=== PATIENT | male | born 1985 | race Caucasian/White ===

== ENCOUNTER → 2023-10-29 06:51 | Outpatient (REF) | payer BC, SELFPAY | LOC: MRI 06:51 | PROVIDERS: ATTENDING PHYSICIAN Otolaryngology; FAMILY PHYSICIAN Family Medicine | DX: R42 Dizziness and giddiness (principal); R51.9 Headache, unspecified; H90.41 Sensorineural hearing loss, unilateral, right ear, with unrestricted hearing on the contralateral side | CPT/HCPCS: 70553; A9575 ==